=== PATIENT | male | born 1995 | race Caucasian/White ===

== ENCOUNTER 2018-03-07 | Emergency (ER) | payer OTHER ==
[~2018-03-07] MED LIST: BACTRIM DS 8001 TA1 PO; KEFLEX500 MG PO; MOTRIN400 MG PO; MOTRIN800 MG PO; PREDNISONE10 MG PO; TYLENOL650 M1 PO
[2018-03-07 16:51] VITALS: BP 121/76
[2018-03-07] MEDS ORDERED: ZOFRAN4 MG PO (17:11)
[2018-03-07] MEDS ORDERED: PEPCID20 MG PO (17:11)
== END 2018-03-07 17:30 | disposition home or self-care (01) ==
DX: R11.2 Nausea with vomiting, unspecified (principal); R10.13 Epigastric pain; R19.7 Diarrhea, unspecified; F17.200 Nicotine dependence, unspecified, uncomplicated

== ENCOUNTER 2019-07-26 19:24 | Emergency (ER) | payer OTHER ==
[~2019-07-26] VITALS: Ht 180.3 cm; Wt 72.6 kg
[~2019-07-26 19:24] MED LIST changes: +PEPCID20 MG PO; +ZOFRAN4 MG PO
[2019-07-26 21:30] LABS: BILIRUBIN NEGATIVE (NEGATIVE); CLARITY SL CLOUDY (CLEAR); COLOR YELLOW (YELLOW); GLUCOSE NEGATIVE (NEGATIVE); KETONE NEGATIVE (NEGATIVE)
[2019-07-26 21:31] LABS: BLOOD NEGATIVE (NEGATIVE); LEUKO ESTERASE NEGATIVE (NEGATIVE); NITRITE NEGATIVE (NEGATIVE); PH 6.5 (5.0-9.0); SPECIFIC GRAVITY 1.015 (1.005-1.030); UROBILINOGEN 0.2 E.U./dl (0.2-1.0)
[2019-07-26 21:35] LABS: RBC 0-2 rbc/hpf (0-2)
[2019-07-26 21:36] LABS: BACTERIA TRACE; EPITHELIAL CELLS 0-2; MUCOUS TRACE
== END 2019-07-26 22:49 | disposition home or self-care (01) ==
LOC: ED 19:24
PROVIDERS: Nurse Practitioner
DX: M25.561 Pain in right knee (principal); Z20.2 Contact with and (suspected) exposure to infections with a predominantly sexual mode of transmission

== ENCOUNTER 2019-09-22 02:43 | Emergency (ER) | payer OTHER ==
[~2019-09-22] VITALS: Wt 74.8 kg
== END 2019-09-22 06:49 | disposition home or self-care (01) ==
LOC: ED 02:43
DX: S20.211A Contusion of right front wall of thorax, initial encounter (principal); S00.81XA Abrasion of other part of head, initial encounter; M79.674 Pain in right toe(s); Y08.89XA Assault by other specified means, initial encounter; Y93.89 Activity, other specified; Y92.89 Other specified places as the place of occurrence of the external cause; Y99.8 Other external cause status